=== PATIENT | female | born 1995 | race Caucasian/White ===

== ENCOUNTER 2018-02-13 08:16 | Emergency (ER) | payer OTHER ==
[2018-02-13] MEDS ORDERED: IBUPROFEN 800 MG TABLET PO STA (08:47)
[2018-02-13] MEDS ORDERED: DEXAMETHASONE 10 MG/ML VIAL PO STA (08:47)
[2018-02-13] MEDS ORDERED: AMPICILLIN/SULBACTAM 3 GM in SODIUM CHLORIDE 0.9% MINIBAG 100 ML IV STA (08:51)
[2018-02-13] MEDS ORDERED: IOPAMIDOL-300 100 ML VIAL ONE (08:54)
--- NOTE | 2018-02-13 08:55 | ED Physician Documentation ---
PD HPI HEENT - Stated complaint Stated Complaint: LT FACIAL SWELLING - Chief complaint Chief Complaint: Heent - History obtained from History obtained from: Patient - History of Present Illness Timing - onset: How many days ago (2) Timing - details: Gradual onset Location: Throat Associated symptoms: Facial swelling. No: Fever Similar symptoms before: Has not had sx before - Additional information Additional information: The patient is an otherwise healthy 23-year-old female who presents with left facial swelling that started 2 days ago and has increased since that time. There is associated soreness on the left side of her face and neck, without difficulty swallowing. She denies fever or cough. She has no history of similar symptoms in the past. Review of Systems Constitutional: denies: Fever Eyes: denies: Irritation Ears: denies: Ear pain Nose: denies: Congestion Throat: reports: Other (Swelling left face and throat.) Cardiac: denies: Chest pain / pressure Respiratory: denies: Dyspnea, Cough GI: denies: Abdominal Pain, Nausea, Vomiting : denies: Dysuria Skin: denies: Rash Musculoskeletal: denies: Neck pain Neurologic: denies: Headache PD PAST MEDICAL HISTORY - Past Medical History Respiratory: None Endocrine/Autoimmune: None - Present Medications Home Medications: Ambulatory Orders Medication Instructions Recorded Confirmed Amox/Clav 875/125 [Augmentin] 1 each PO Q12H #20 tablet 02/13/18 - Allergies Allergies/Adverse Reactions: Allergies Allergy/AdvReac Type Severity Reaction Status Date / Time No Known Drug Allergies Allergy Verified 02/13/18 08:36 - Social History Does the pt smoke?: No - Immunizations Immunizations are current?: Yes PD ED PE NORMAL - Vitals Vital signs reviewed: Yes (normal) - General General: Alert and oriented X 3, Well developed/nourished - HEENT HEENT: Atraumatic, EOMI, Ears normal, Other (Left facial swelling, with associated tenderness to palpation in the left submandibular region. Left oropharyngeal swelling and mild erythema. No exudates.) - Neck Neck: Supple, no meningeal sign, Other (Left anterior cervical adenopathy.) - Cardiac Cardiac: RRR, No murmur - Respiratory Respiratory: No respiratory distress, Clear bilaterally - Abdomen Abdomen: Soft, Non tender - Back Back: No CVA TTP - Derm Derm: No rash - Extremities Extremities: No edema - Neuro Neuro: Alert and oriented X 3, No motor deficit, Normal speech Results - Vitals Vitals: Oxygen O2 Source Room air - Labs Labs: Microbiology 02/13/18 08:40 Group A Strep Throat Culture - Preliminary Throat CULTURE IN PROGRESS. RESULTS TO FOLLOW. Laboratory Tests 02/13/18 08:40 Group A Strep Rapid Negative - Rads (name of study) CT soft tissue neck w/ Radiology: Prelim report reviewed, EMP read contemporaneously, See rad report ( There is fluid in the left lateral submandibular space, deep to the left platysmas muscle, probably representing edema secondary to infection in the left submandibular space. No discrete, loculated, peripherally enhancing fluid collection is demonstrated to confirm submandibular space abscess. No evidence of active dental infection. There is significant stranding of the subcutaneous fat, over the lateral aspects of the left lower face with extension into the submandibular region, consistent with secondary cellulitis.) PD MEDICAL DECISION MAKING - ED course Complexity details: reviewed results, re-evaluated patient, considered differential, d/w patient ED course: The patient's presentation is most consistent with cellulitis of the left submandibular region. There is no drainable abscess detected on CT scan. Rapid strep screen is negative. She demonstrates no difficulty swallowing. Treatment in the emergency department included administration of dexamethasone 10 mg orally, ibuprofen 800 mg orally, and Unasyn 3 g IV. She is being discharged with prescription for Augmentin. I discussed with her the diagnosis , antibiotic treatment and outpatient follow-up, as well as potentially worrisome signs or symptoms that should prompt reevaluation in the emergency department. - Sepsis Event Vital Signs: Oxygen O2 Source Room air Departure - Departure Disposition: 01 Home, Self Care Clinical Impression: Cellulitis of submandibular region Condition: Stable Instructions: ED Cellulitis Facial Follow-Up: [facility] [Provider Group] Prescriptions: Amox/Clav 875/125 [Augmentin] 1 each PO Q12H #20 tablet Comments: Take Augmentin twice daily as prescribed. You should eat probiotic yogurt while on antibiotic therapy. You can use Tylenol or ibuprofen if needed for fever or discomfort. Follow up with your primary physician within 1 week. Call to schedule an appointment. Return to the emergency department if you develop increasing difficulty swallowing, increasing facial swelling, or otherwise worsening symptoms. Discharge Date/Time: 02/13/18 11:08
[2018-02-13] MEDS ORDERED: IOPAMIDOL-300 100 ML VIAL IVP ONE (09:53)
--- NOTE | 2018-02-13 10:44 | CT Report ---
Procedure Date: 02/13/2018 Accession Number: [id number] / [id number] Procedure: CT - Neck Soft Tissue W/ CPT Code: FULL RESULT: CT SOFT TISSUE NECK WITH CONTRAST INDICATION: 23-year-old female with left facial/neck swelling over past 2 days. Concern for peritonsillar abscess TECHNIQUE: 100 cc of Isovue 300 contrast were injected intravenously. The neck was scanned helically and data was reconstructed into 2 mm axial images. In addition, sagittal and coronal reformations have been generated. In accordance with CT protocol optimization, one or more of the following dose reduction techniques were utilized for this exam: automated exposure control, adjustment of mA and/or KV based on patient size, or use of iterative reconstructive technique. COMPARISON: None. FINDINGS: There is fluid density material in the lateral aspect of the left submandibular space, deep to the left platysma muscle, overlying the lateral and posterior margin of the left submandibular gland. No peripheral enhancement is identified, to suggest this represents an abscess. This presumably represents edema. The submandibular gland itself has a normal appearance. No mass lesion is demonstrated. There is no asymmetric enlargement or increased enhancement of the gland to suggest active sialoadenitis. No radiopaque calculi are seen within the gland or within the left Stensen's duct. There appears to be mild, asymmetric soft tissue fullness along the left lateral pharyngeal wall, probably reactive and secondary to infection in the left submandibular space. In addition, there is edema in the fat for left parapharyngeal space, also likely reactive and secondary to infection in the left submandibular space. No findings concerning for tonsillar or peritonsillar abscess. No tongue lesion is identified. No evidence of active infection in the floor of mouth. The tongue base has a normal appearance. The epiglottis and larynx are unremarkable. No hypopharyngeal mass is demonstrated. The trachea is widely patent to the deshawn. The thyroid has a normal appearance. The parotid glands are unremarkable. The carotid arteries appear widely patent. The vertebral arteries are not well assessed due to extensive venous contamination. The internal jugular veins are patent. The left jugulodigastric lymph node is hyperdense, suggesting probable enhancement. It measures within normal limits in size at about 1.4 x 0.8 cm. This most likely represents a reactive lymph node. No necrotic or suppurative lymph nodes are seen in the neck. Calcified granuloma is identified in upper lobe left lung. No discrete mass or noncalcified nodule is seen in the imaged upper lungs. Calcified lymph nodes are seen at the left hilum. No worrisome lymphadenopathy is seen in the imaged mediastinum. Regional bony structures appear intact. No lytic or destructive bone lesion is demonstrated. Middle ear cavities and mastoid air cells appear clear. The imaged paranasal sinuses are clear. No masses identified in either orbit. No obvious acute pathology seen in the imaged brain. Maxillary and mandibular teeth have a normal appearance. No findings concerning for active dental infection. IMPRESSION: 1. There is fluid in lateral left submandibular space, deep to the left platysma muscle, probably representing edema, secondary to infection in the left submandibular space. No discrete, loculated, peripherally enhancing fluid collection is demonstrated to confirm submandibular space abscess. The source of the infection in the left submandibular space is unclear. No asymmetric enlargement or increased enhancement of the left submandibular gland is identified to confirm active sialoadenitis. In addition, there is no evidence of an obstructing calculus in left Stensen's duct. 2. No evidence of active dental infection to suggest that the infection in the left submandibular space has an odontogenic source. 3. There is significant stranding of the subcutaneous fat, over the lateral aspects of the lower left face with extension into the submandibular region, consistent with secondary cellulitis. 4. Edema is identified in the left parapharyngeal fat. There is minor, asymmetric fullness along the left lateral pharyngeal wall. These changes are probably reactive and secondary to the infection in the left submandibular space. 5. No other significant pathology is identified. No evidence of tonsillar/peritonsillar abscess, epiglottitis or retropharyngeal abscess. No airway compromise is demonstrated.
[2018-02-13 11:08] VITALS: BP 128/74
== END 2018-02-13 11:08 | disposition home or self-care (01) ==
LOC: ED 08:16
DX: K12.2 Cellulitis and abscess of mouth (principal)
CPT/HCPCS: 70490; 70491; 87070; 87430; 96365; 99283; A9270; Q9967